=== PATIENT | female | born 1950 | race Caucasian/White ===

== ENCOUNTER 2019-09-09 18:14 | Emergency (ER) | payer BC ==
[2019-09-09 18:50] VITALS: BP 128/73; PULSE 69; TEMP 98; BMI 23.3
--- NOTE | 2019-09-09 19:00 | PDOC ---
Documentation entered by Buddy Tesfaye SCRIBE, acting as scribe for Shruthi Brown MD. Shruthi Brown MD: This documentation has been prepared by the Brien patel Angel, SCRIBE, under my direction and personally reviewed by me in its entirety. I confirm that the documentation accurately reflects all work, treatment, procedures, and medical decision making performed by me. History of Present Illness - General Chief Complaint: Injury Stated Complaint: FELL Time Seen by Provider: 09/09/19 18:51 History Source: Patient Exam Limitations: No Limitations - History of Present Illness Initial Comments: 09/09/19 19:00 The patient is a 64 year old female with significant past medical history of osteoporosis and on daily baby aspirin who presents to the ED s/p mechanical fall around 4pm today. The patient reports she tripped and fell on the sidewalk landing on her hands. The patient states she hit her head and the right side of her face. Patient complains of pain to the ulnar aspect of her left hand. Ambulatory at the scene and in the ED. Denies LOC. Denies chest pain. Denies neck pain. Surgical hx: Appendix removal, Tonsil removal, Gallbladder removal Past History - Past Medical History Allergies/Adverse Reactions: Allergies Allergy/AdvReac Type Severity Reaction Status Date / Time No Known Allergies Allergy Verified 09/09/19 18:24 Home Medications: Ambulatory Orders Aspirin Coated [Ecotrin -] 81 mg PO HS 09/09/19 Cholecalciferol (Vitamin D3) [Vitamin D3] 2,000 unit PO HS 09/09/19 Multivit-Minerals/Folic Acid [One Daily Womens 50 Plus Tab] 0.4 mg PO HS Rosuvastatin [Crestor -] 5 mg PO HS 09/09/19 COPD: No Hypercholesterolemia: Yes - Surgical History Appendectomy: Yes Cholecystectomy: Yes - Psycho Social/Smoking Cessation Hx Smoking History: Never smoked Hx Alcohol Use: Yes (WINE) Drug/Substance Use Hx: No Review of Systems - Review of Systems Able to Perform ROS?: Yes Comments:: 09/09/19 19:00 GENERAL/CONSTITUTIONAL: No fever or chills. No weakness. HEAD, EYES, EARS, NOSE AND THROAT: No change in vision. No ear pain or discharge. No sore throat. CARDIOVASCULAR: No chest pain or shortness of breath. RESPIRATORY: No cough, wheezing, or hemoptysis. GASTROINTESTINAL: No nausea, vomiting, diarrhea or constipation. GENITOURINARY: No dysuria, frequency, or change in urination. MUSCULOSKELETAL: + hand pain. No neck or back pain. SKIN: No rash NEUROLOGIC: No headache, vertigo, loss of consciousness, or change in strength/ sensation. ENDOCRINE: No increased thirst. No abnormal weight change. HEMATOLOGIC/LYMPHATIC: No anemia, easy bleeding, or history of blood clots. ALLERGIC/IMMUNOLOGIC: No hives or skin allergy. *Physical Exam - Vital Signs Last Vital Signs Temp Pulse Resp BP Pulse Ox 98.0 F 69 16 128/73 98 09/09/19 18:15 09/09/19 18:15 09/09/19 18:15 09/09/19 18:15 09/09/19 18:15 - Physical Exam 09/09/19 19:01 GENERAL: Awake, alert, and fully oriented, in no acute distress HEAD: No signs of trauma EYES: PERRLA, EOMI, sclera anicteric, conjunctiva clear ENT: Auricles normal inspection, hearing grossly normal, nares patent, oropharynx clear without exudates. Moist mucosa NECK: + Supple, full ROM. No step off deformity. spinous process tenderness. No lymphadenopathy, JVD, or masses. LUNGS: Breath sounds equal, clear to auscultation bilaterally. No wheezes, and no crackles HEART: Regular rate and rhythm, normal S1 and S2, no murmurs, rubs or gallops ABDOMEN: Soft, nontender, normoactive bowel sounds. No guarding, no rebound. No masses EXTREMITIES: + Slight redness on the ulnar side of right hand. Full ROM at the MCP, DIP, and PIP joints and at the wrist. No deformity. Normal range of motion , no edema. No clubbing or cyanosis. No cords, or tenderness NEUROLOGICAL: Cranial nerves II through XII grossly intact. Normal speech, normal gait SKIN: Warm, Dry, normal turgor, no rashes or lesions noted. ED Treatment Course - RADIOLOGY Radiology Studies Ordered: Category Date Time Status CERVICAL SPINE CT W/O CONTR [CT] Stat CT Scan 09/09/19 18:[address] WITHOUT CONTRAST [CT] Stat CT Scan 09/09/19 18:46 Ordered HAND- RIGHT [RAD] Stat Radiology 09/09/19 18:54 Ordered Medical Decision Making - Medical Decision Making 09/09/19 18:58 Pt presents to the ED complaining of mechancial fall without LOC. On asprin. WIll check CT head and C spine to rule out intracranial or cervical spinal injury. Will check xray of the R hand. Likely discharge if negative. Discharge - Discharge Information Problems reviewed: Yes Clinical Impression/Diagnosis: Fall Qualifiers: Encounter type: initial encounter Qualified Code(s): W19.XXXA - Unspecified fall, initial encounter Condition: Good Disposition: HOME - Admission No - Follow up/Referral Referrals: Christopher Ma [Primary Care Provider] - - Patient Discharge Instructions Additional Instructions: For the pain take Tylenol 1000 mg as often this 3-4 times a day if needed. Someone to check on you once tonight during the night. You should be arousable to their normal level of arousability for that time of the night. If you have been vomiting, had a seizure, or you are unable to be aroused or there is a change in your mental status call 911 go back to the nearest emergency department. Return to the emergency department immediately with ANY new, persistent or worsening symptoms. Continue any medications as previously prescribed by your physician. You should follow up with your primary doctor as soon as possible regarding today's emergency department visit. . Please make sure your doctor reviews the results of your emergency evaluation. Thank you for coming to the Emergency Department today for your care. It was a pleasure to see you today. Please note that your evaluation is INCOMPLETE until you follow-up with your doctor. - Post Discharge Activity
--- NOTE | 2019-09-09 19:46 | PDOC ---
*Physical Exam - Vital Signs Last Vital Signs Temp Pulse Resp BP Pulse Ox 98.0 F 69 16 128/73 98 09/09/19 18:15 09/09/19 18:15 09/09/19 18:15 09/09/19 18:15 09/09/19 18:15 ED Progress Note - Progress Note Progress Note: 09/09/19 19:45 Care of this patient was transferred to fl from Dr. Brown at 1900 hrs. Patient is a 68-year-old female who tripped and fell. Patient has a head CT pending. Head CT was negative for any acute intracranial pathology. Patient discharged home will follow-up with her primary care doctor Discharge - Discharge Information Problems reviewed: Yes Clinical Impression/Diagnosis: Fall Qualifiers: Encounter type: initial encounter Qualified Code(s): W19.XXXA - Unspecified fall, initial encounter Condition: Good - Admission No - Follow up/Referral Referrals: Christopher Ma [Primary Care Provider] - - Patient Discharge Instructions Additional Instructions: For the pain take Tylenol 1000 mg as often this 3-4 times a day if needed. Someone to check on you once tonight during the night. You should be arousable to their normal level of arousability for that time of the night. If you have been vomiting, had a seizure, or you are unable to be aroused or there is a change in your mental status call 911 go back to the nearest emergency department. Return to the emergency department immediately with ANY new, persistent or worsening symptoms. Continue any medications as previously prescribed by your physician. You should follow up with your primary doctor as soon as possible regarding today's emergency department visit. . Please make sure your doctor reviews the results of your emergency evaluation. Thank you for coming to the Emergency Department today for your care. It was a pleasure to see you today. Please note that your evaluation is INCOMPLETE until you follow-up with your doctor. - Post Discharge Activity
== END 2019-09-09 19:57 | disposition home or self-care (01) ==
LOC: FER 18:14
DX: M79.642 Pain in left hand (principal); W18.39XA Other fall on same level, initial encounter; Y93.89 Activity, other specified; Y92.89 Other specified places as the place of occurrence of the external cause
CPT/HCPCS: 70450-TC; 72125-TC; 73130-TC-RT-FY; 99282-25